=== PATIENT | male | born 1975 | race African-American/Black ===

== ENCOUNTER 2017-01-29 06:29 | Emergency (ER) | payer OTHER ==
[~2017-01-29] VITALS: Ht 170.2 cm; Wt 55.9 kg
[2017-01-29 06:30] VITALS: BP 132/60; PULSE 54; RESP 18; TEMP 97.3; O2SAT 100
[2017-01-29] MEDS ORDERED: MORPHINE SULFATE 4 MG/ML INJ IV PUSH ONE (07:15)
[2017-01-29] MEDS ORDERED: ONDANSETRON HCL 4 MG/2 ML VIAL IV PUSH ONE (07:15)
--- NOTE | 2017-01-29 07:17 | PD ---
HPI Chief Complaint: Abdominal Pain Time Seen by Provider: 07:04 Travel History International Travel<30 days: No Contact w/Intl Traveler<30days: No Traveled to known affect area: No History of Present Illness HPI 41yo M with no significant PMH presents to the ED with c/o abdominal pain after bowel movement at 4am today. Said it was normal bowel movement without blood and then started having nausea and vomiting. Hard to describe pain and it is periumbilical, epigastric and a little to the left. Pain is intermittent and moderate in severity. No alleviating or exacerbating factor. [place] warm but no documented fever. Denies any chest pain, sob, dysuria, hematuria. Had similar pain before around [facility]. Follows with Dr. Ayoub but negative endoscopy and colonoscopy this year. Denies alcohol use. PFSH Past Medical History Medical History: Denies Significant Hx Diminished Hearing: No Immunizations Current: No Tetanus Vaccination: Unknown Influenza Vaccination: No Past Surgical History Surgical History: No Previous Surgery Social History Alcohol Use: No Tobacco Use: No Substance Use: No Allergies-Medications (Allergen,Severity, Reaction): Coded Allergies: No Known Allergies (Unverified , 01/29/17) Reported Meds & Prescriptions Reported Meds & Active Scripts Active No Active Prescriptions or Reported Medications Review of Systems Except as stated in HPI: all other systems reviewed are Neg Physical Exam Narrative GENERAL: 41yo M in mild distress. SKIN: Focused skin assessment warm/dry. HEAD: Atraumatic. Normocephalic. EYES: Pupils equal and round. No scleral icterus. No injection or drainage. CARDIOVASCULAR: Regular rate and rhythm. No murmur appreciated. RESPIRATORY: No accessory muscle use. Clear to auscultation. Breath sounds equal bilaterally. GASTROINTESTINAL: Abdomen soft, Mild epigastric ttp. Mild LUQ ttp. No rebound tenderness or guarding. MUSCULOSKELETAL: No obvious deformities. No clubbing. No cyanosis. No edema. NEUROLOGICAL: Awake and alert. No obvious cranial nerve deficits. Motor grossly within normal limits. Normal speech. PSYCHIATRIC: Appropriate mood and affect; insight and judgment normal. Data Data Last Documented VS Vital Signs Date Time Temp Pulse Resp B/P (MAP) Pulse Ox O2 Delivery O2 Flow Rate FiO2 01/29/17 07:48 16 01/29/17 06:30 97.3 54 132/60 (84) 100 Orders Orders Complete Blood Count With Diff (01/29/17 07:12) Comprehensive Metabolic Panel (01/29/17 07:12) Lipase (01/29/17 07:12) Prothrombin Time / Inr (Pt) (01/29/17 07:12) Act Partial Throm Time (Ptt) (01/29/17 07:12) Urinalysis - C+S If Indicated (01/29/17 07:12) Ct Abd/Pel W Iv Contrast(Rout) (01/29/17 07:12) Morphine Inj (Morphine Inj) (01/29/17 07:15) Ondansetron Inj (Zofran Inj) (01/29/17 07:15) Iohexol 350 Inj (Omnipaque 350 Inj) (01/29/17 07:32) Labs Laboratory Tests Test 01/29/17 07:00 01/29/17 07:08 Urine Collection Type CLEAN CATCH Urine Color YELLOW Urine Turbidity CLEAR Urine pH 6.0 Urine Specific [place] 1.026 Urine Protein NEG mg/dL Urine Glucose (UA) NEG mg/dL Urine Ketones 15 mg/dL Urine Occult Blood LARGE Urine Nitrite NEG Urine Bilirubin NEG Urine Leukocyte Esterase NEG Urine RBC 15-19 /hpf Urine WBC 0-2 /hpf Urine Bacteria RARE /hpf Urine Mucus MOD /lpf Microscopic Urinalysis Comment CULT NOT INDICATED White Blood Count 10.4 TH/MM3 Red Blood Count 5.27 MIL/MM3 Hemoglobin 16.9 GM/DL Hematocrit 49.9 % Mean Corpuscular Volume 94.7 FL Mean Corpuscular Hemoglobin 32.2 PG Mean Corpuscular Hemoglobin Concent 33.9 % Red Cell Distribution Width 12.7 % Platelet Count 175 TH/MM3 Mean Platelet Volume 8.9 FL Neutrophils (%) (Auto) 78.6 % Lymphocytes (%) (Auto) 12.3 % Monocytes (%) (Auto) 4.1 % Eosinophils (%) (Auto) 3.3 % Basophils (%) (Auto) 1.7 % Neutrophils # (Auto) 8.2 TH/MM3 Lymphocytes # (Auto) 1.3 TH/MM3 Monocytes # (Auto) 0.4 TH/MM3 Eosinophils # (Auto) 0.3 TH/MM3 Basophils # (Auto) 0.2 TH/MM3 CBC Comment AUTO DIFF Differential Comment AUTO DIFF CONFIRMED Platelet Estimate NORMAL Platelet Morphology Comment NORMAL Red Cell Morphology Comment NORMAL Prothrombin Time 10.9 SEC Prothromb Time International Ratio 1.1 RATIO Activated Partial Thromboplast Time 29.5 SEC Blood Urea Nitrogen 10 MG/DL Creatinine 0.92 MG/DL Random Glucose 93 MG/DL Total Protein 8.0 GM/DL Albumin 4.3 GM/DL Calcium Level 8.8 MG/DL Alkaline Phosphatase 86 U/L Aspartate Amino Transf (AST/SGOT) 27 U/L Alanine Aminotransferase (ALT/SGPT) 27 U/L Total Bilirubin 0.8 MG/DL Sodium Level 138 MEQ/L Potassium Level 3.9 MEQ/L Chloride Level 105 MEQ/L Carbon Dioxide Level 26.9 MEQ/L Anion Gap 6 MEQ/L Estimat Glomerular Filtration Rate 110 ML/MIN Lipase 70 U/L [facility] Medical Decision Making Medical Screen Exam Complete: Yes Emergency Medical Condition: Yes Differential Diagnosis Gastritis vs. PUD vs. pancreatitis vs. colitis Narrative Course 41yo well appearing male here with upper abdominal pain and vomiting. Pt has never had a CT scan. Labs reviewed, no leukocytosis. Lipase 70. CMP unremarkable. UA showed large occult blood. WBC 0-2. Culture not indicated. Instructed pt to follow up with PMD for further work up of hematuria. CT a/p negative. Pt reevaluated after zofran and morphine and pain has improved. Tolerating PO. Instructed pt to follow up with Dr. Ayoub as outpatient. Diagnosis Primary Impression: Abdominal pain Qualified Codes: R10.13 - Epigastric pain Patient Instructions: General Instructions Departure Forms: Tests/Procedures Additional Instructions: Please follow up with your primary care physician in 3-7 days for work up of blood in urine. Please follow up with Dr. Ayoub for your abdominal pain. Return to the ED if symptoms worsen. Med/Other Pt SpecificInfo: Prescription(s) given Scripts Acetaminophen (Tylenol) 325 Mg Tab 650 MG PO Q6H Y for PAIN SCALE 1 TO 4, #20 TAB 0 Refills Prov: Zoey Carrillo 01/29/17 Disposition: 01 DISCHARGE HOME Condition: Stable CarrilloZoey acosta Jan 29, 2017 07:17
[2017-01-29 07:23] LABS: BLOOD, URINE LARGE (NEG); GLUCOSE,URINE NEG (NEG); KETONE, URINE 15 mg/dL (NEG); NITRITE,URINE NEG (NEG)
[2017-01-29 07:25] LABS: AUTOMATED NEUTROPHIL # 8.2 TH/MM3 (1.8-7.7); BASOPHIL # 0.2 TH/MM3 (0-0.2); BASOPHIL % 1.7 % (0.0-2.0); EOSINOPHIL # 0.3 TH/MM3 (0-0.4); EOSINOPHIL % 3.3 % (0.0-4.0); HEMATOCRIT 49.9 % (39.0-51.0); LYMPH % 12.3 % (9.0-44.0); LYMPHOCYTE # 1.3 TH/MM3 (1.0-4.8); MEAN CELL VOLUME 94.7 FL (80.0-100.0); MEAN CORPUSCULAR HEMOGLOBIN 32.2 PG (27.0-34.0); MEAN CORPUSCULAR HGB CONC 33.9 % (32.0-36.0); MONO % 4.1 % (0.0-8.0); NEUT % 78.6 % (16.0-70.0); PLATELET COUNT 175 TH/MM3 (150-450); RED BLOOD COUNT 5.27 MIL/MM3 (4.50-5.90); RED CELL DISTRIBUTION WIDTH 12.7 % (11.6-17.2); WHITE BLOOD COUNT 10.4 TH/MM3 (4.0-11.0)
[2017-01-29 07:26] LABS: HEMO FLAGS AUTO DIFF
[2017-01-29 07:31] LABS: METHOD OF COLLECTION CLEAN CATCH
[2017-01-29 07:32] LABS: CHLORIDE 105 MEQ/L (98-107); POTASSIUM 3.9 MEQ/L (3.5-5.1); SODIUM (NA) 138 MEQ/L (136-145)
[2017-01-29 07:32] LABS: BACTERIA, URINE RARE /hpf; COMMENT (UR) CULT NOT INDICATED; CULTURE IF INDICATED CULT NOT INDICATED; MUCUS URINE MOD /lpf (OCC); RBC, URINE 15-19 /hpf (0-3); URINE COLOR YELLOW (YELLW/STRAW); WBC, URINE 0-2 /hpf (0-5)
[2017-01-29] MEDS ORDERED: IOHEXOL 350 MG/ML 10 ML VIAL (for RAD DIAG) IVCONTRAST ONE (07:32)
[2017-01-29 07:35] LABS: APTT (PATIENT) 29.5 SEC (24.3-30.1); INTERNATIONAL NORMALIZED RATIO 1.1 RATIO; PROTHROMBIN TIME - PATIENT 10.9 SEC (9.8-11.6)
[2017-01-29 07:36] LABS: ANION GAP 6 MEQ/L (5-15); BICARBONATE 26.9 MEQ/L (21.0-32.0); BLOOD UREA NITROGEN 10 MG/DL (7-18)
[2017-01-29 07:39] LABS: ALT (GPT) 27 U/L (12-78); AST (GOT) 27 U/L (15-37); GLOMERULAR FILTRATION RATE 110 ML/MIN (>89)
[2017-01-29 07:40] LABS: TOTAL BILIRUBIN ADULT 0.8 MG/DL (0.2-1.0)
[2017-01-29 07:42] LABS: ALKALINE PHOSPHATASE 86 U/L (45-117)
[2017-01-29 07:48] LABS: PLATELET ESTIMATE SMEAR NORMAL (NORMAL); PLATELET MORPHOLOGY NORMAL (NORMAL); SCAN/DIFF AUTO DIFF CONFIRMED
--- NOTE | 2017-01-29 08:15 | RADRPT ---
EXAM DATE/TIME: 01/29/2017 07:22 [place] COMPARISON: No previous studies available for comparison. INDICATIONS : Epigastric pain radiating to left side and back. IV CONTRAST: 85 cc Omnipaque 350 (iohexol) IV ORAL CONTRAST: No oral contrast ingested. RADIATION DOSE: 4.64 CTDIvol (mGy) MEDICAL HISTORY : None SURGICAL HISTORY : None. ENCOUNTER: Initial ACUITY: 2 weeks PAIN SCALE: 4/10 LOCATION: Left flank epigastric TECHNIQUE: Volumetric scanning of the abdomen and pelvis was performed. Using automated exposure control and ad justment of the mA and/or kV according to patient size, radiation dose was kept as low as reasonably achievable to obtain optimal diagnostic quality images. DICOM format image data is available electro nically for review and comparison. FINDINGS: Lung base is are clear. The liver, spleen and gallbladder are unremarkable. The pancreas and adrenal glands are unremarkable There is symmetrical renal function Region of the cecum and terminal him unremarkable Pelvic contents are normal. Scattered phleboliths are noted. The portion of the bony skeleton visualized is unremarkable. CONCLUSION: 1. I do not see etiology for the epigastric pain. Mushtaq Dickson MD FACR on January 29, 2017 at 8:10 Board Certified Radiologist. This report was verified electronically.
[2017-01-29] MEDS ORDERED: TYLE325T PO (08:25)
[2017-01-29 08:45] VITALS: BP 125/80; PULSE 62; RESP 16; O2SAT 98
[2017-01-30] MEDS ORDERED: VIBR100C PO (13:41)
== END 2017-01-29 09:06 | disposition home or self-care (01) ==
LOC: PHED 06:29
DX: R10.13 Epigastric pain (principal)
CPT/HCPCS: 74177; 80053; 81001; 83690; 85025; 85610; 85730; 96374; 96375; 99285; J2270; J2405; Q9967

== ENCOUNTER 2017-01-30 12:36 | Emergency (ER) | payer OTHER ==
[~2017-01-30] VITALS: Ht 170.2 cm; Wt 58.0 kg
[~2017-01-30 12:36] MED LIST: TYLE325T PO
[2017-01-30 12:41] VITALS: BP 130/60; PULSE 50; RESP 16; TEMP 97.7; O2SAT 100
[2017-01-30 13:17] LABS: BLOOD, URINE LARGE (NEG); GLUCOSE,URINE NEG (NEG); KETONE, URINE 15 mg/dL (NEG); NITRITE,URINE NEG (NEG)
--- NOTE | 2017-01-30 13:22 | PD ---
HPI Chief Complaint: Abdominal Pain Time Seen by Provider: 12:59 Travel History International Travel<30 days: No Contact w/Intl Traveler<30days: No Traveled to known affect area: No History of Present Illness HPI This 41-year-old male has multiple complaints. He says he is having some left lower quadrant discomfort. He says that sometimes he feels like he has to urinate and only dribbles a small amount. Sometimes he feels like he has to have a bowel movement and was out. The symptoms have been intermittent since . He has no history of urethral discharge. He was a patient here yesterday and had lab work and a CAT scan of the abdomen and pelvis. The CAT scan did not show an etiology for the pain. He had a colonoscopy done last year he says it was just routine. Yesterday when he was a patient in his hemoglobin was 16.9 with a white count of 10.4. Urinalysis showed 15-[address] of the abdomen and pelvis was negative PFSH Past Medical History Medical History: Denies Significant Hx Diminished Hearing: No Immunizations Current: No Tetanus Vaccination: Unknown Past Surgical History Surgical History: No Previous Surgery Social History Alcohol Use: No Tobacco Use: No Substance Use: No Allergies-Medications (Allergen,Severity, Reaction): Coded Allergies: No Known Allergies (Unverified , 01/30/17) Reported Meds & Prescriptions Reported Meds & Active Scripts Active No Active Prescriptions or Reported Medications Review of Systems General / Constitutional: No: Fever, Chills Eyes: No: Diploplia, Blurred Vision HENT: No: Headaches, Vertigo Cardiovascular: No: Chest Pain or Discomfort, Palpitations Respiratory: No: Cough Gastrointestinal: Positive: Vomiting, No: Nausea Genitourinary: Positive: Dysuria, Hesitancy, Dribbling Musculoskeletal: No: Myalgias Skin: No Rash, No Itching Psychiatric: No: Anxiety Endocrine: No: Heat Intolerance Physical Exam Narrative GENERAL: Thin male SKIN: Focused skin assessment warm/dry. HEAD: Atraumatic. Normocephalic. EYES: Pupils equal and round. No scleral icterus. No injection or drainage. ENT: No nasal bleeding or discharge. Mucous membranes pink and moist. NECK: Trachea midline. No JVD. CARDIOVASCULAR: Regular rate and rhythm. No murmur appreciated. RESPIRATORY: No accessory muscle use. Clear to auscultation. Breath sounds equal bilaterally. GASTROINTESTINAL: Abdomen soft, non-tender, nondistended. Hepatic and splenic margins not palpable. Patient complains of pain with prostate exam. Prostate is tender but not grossly enlarged MUSCULOSKELETAL: No obvious deformities. No clubbing. No cyanosis. No edema. NEUROLOGICAL: Awake and alert. No obvious cranial nerve deficits. Motor grossly within normal limits. Normal speech. PSYCHIATRIC: Appropriate mood and affect; insight and judgment normal. Data Data Last Documented VS Vital Signs Date Time Temp Pulse Resp B/P (MAP) Pulse Ox O2 Delivery O2 Flow Rate FiO2 01/30/17 12:41 97.7 50 16 130/60 (83) 100 Orders Orders Urinalysis - C+S If Indicated (01/30/17 13:05) Doxycycline (Vibramycin) (01/30/17 21:00) Labs Laboratory Tests Test 01/30/17 13:05 Urine Collection Type CLEAN CATCH Urine Color YELLOW Urine Turbidity CLEAR Urine pH 6.0 Urine Specific [place] 1.015 Urine Protein NEG mg/dL Urine Glucose (UA) NEG mg/dL Urine Ketones 15 mg/dL Urine Occult Blood LARGE Urine Nitrite NEG Urine Bilirubin NEG Urine Leukocyte Esterase NEG Urine RBC 20-24 /hpf Urine WBC 0-2 /hpf Urine Squamous Epithelial Cells 0-5 /hpf Urine Amorphous Sediment FEW Urine Bacteria RARE /hpf Microscopic Urinalysis Comment CULT NOT INDICATED Urine Collection Time 1305 MDM Medical Decision Making Medical Screen Exam Complete: Yes Emergency Medical Condition: Yes Medical Record Reviewed: Yes Differential Diagnosis Differential includes irritable bowel syndrome, prostatitis Narrative Course Urinalysis today shows 20-25 red cells. He had microscopic hematuria yesterday and one on his urinalysis. He had a negative CT of the abdomen and pelvis. He has symptoms suggestive of costochondritis and he will be given empiric antibiotics but the importance that he follow-up with urology was stressed to the patient Diagnosis Primary Impression: Prostatitis Qualified Codes: N41.9 - Inflammatory disease of prostate, unspecified Additional Instructions: Follow-up with your own medical doctor for evaluation of hematuria Scripts No Active Prescriptions or Reported Meds Disposition: 01 DISCHARGE HOME Condition: Stable Alexis Boyce MD Jan 30, 2017 13:22
[2017-01-30 13:27] LABS: METHOD OF COLLECTION CLEAN CATCH; URINE COLOR YELLOW (YELLW/STRAW)
[2017-01-30 13:28] LABS: BACTERIA, URINE RARE /hpf; COMMENT (UR) CULT NOT INDICATED; COMMENT2 (UR) MUCOUS PRESENT; CULTURE IF INDICATED CULT NOT INDICATED; SQUAMOUS EPITHELIAL CELL URINE 0-5 /hpf (0-5); WBC, URINE 0-2 /hpf (0-5)
[2017-01-30] MEDS ORDERED: VIBR100C PO (13:41)
[2017-01-30 14:02] VITALS: BP 128/66
[2017-01-30] MEDS ORDERED: DOXYCYCLINE HYCLATE 100 MG CAP PO SCH (21:00)
== END 2017-01-30 14:04 | disposition home or self-care (01) ==
LOC: PHED 12:36
DX: N41.9 Inflammatory disease of prostate, unspecified (principal)
CPT/HCPCS: 81001; 99283